=== PATIENT | male | born 1995 | race Caucasian/White ===

== ENCOUNTER 2017-03-27 03:30 | Emergency (ER) | payer OTHER ==
[2017-03-27 03:37] VITALS: BP 112/65; PULSE 91; RESP 18; TEMP 97.7; O2SAT 96
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
== END 2017-03-27 04:36 | disposition home or self-care (01) ==
PROC: 0HQFXZZ Repair Right Hand Skin, External Approach (ICD-10-PCS; principal; 2017-03-27)
PROC: 0HQJXZZ Repair Left Upper Leg Skin, External Approach (ICD-10-PCS; 2017-03-27)
DX: S61.210A Laceration without foreign body of right index finger without damage to nail, initial encounter (principal); S61.212A Laceration without foreign body of right middle finger without damage to nail, initial encounter; S71.112A Laceration without foreign body, left thigh, initial encounter; W25.XXXA Contact with sharp glass, initial encounter; Y93.89 Activity, other specified
CPT/HCPCS: L3925